=== PATIENT | female | born 1995 | race Caucasian/White ===

== ENCOUNTER 2018-06-15 02:35 | Inpatient (IN) | payer MEDICAID ==
--- NOTE | 2018-06-15 03:53 | Ultrasound Report ---
FINAL REPORT PROCEDURE: US OB LIMITED TECHNIQUE: Real-time limited sonographic examination was performed for evaluation of well-bein g for each fetus with image documentation (1 or more fetuses). CPT 84639 HISTORY: presentation-leaking fluid COMPARISON: No prior studies are available for comparison. FINDINGS: There is a single fetus in a transverse position. heart rate 146 beats per minute. The placenta is along the fundus of the uterus. No other measurements are obtained IMPRESSION: Single fetus in a transverse position. heart rate 146 beats per minute.
[2018-06-15] MEDS ORDERED: BICITRA PO ONE (03:54)
[2018-06-15] MEDS ORDERED: PEPCID IV ONE ×2 (03:54→07:35)
[2018-06-15] MEDS ORDERED: REGLAN IV ONE (03:54)
[2018-06-15] MEDS ORDERED: PITOCin/NS 20 UNIT/1000ML DRIP 20 UNITS/1,000 ML BAG IV SCH ×2 (04:00→11:00)
[2018-06-15] MEDS ORDERED: ANCEF/STERILE WATER 2 GM/20 ML 2 GM/20 ML SYRINGE IV NR (04:00)
[2018-06-15] MEDS: LACTATED RINGERS 1,000 ML IV SCH ×2 (04:43→06:04)
[2018-06-15 05:18] LABS: Basophils # (Auto) 0.1 K/mm3 (0.0-0.1); Basophils % (Auto) 0.8 % (0.0-1.8); Eosinophils # (Auto) 0.1 K/mm3 (0.0-0.4); Eosinophils % (Auto) 0.6 % (0.0-4.3); Hematocrit 36.7 % (30.3-42.9); Hemoglobin 12.3 gm/dl (10.1-14.3); Lymphocytes # (Auto) 2.8 K/mm3 (1.2-5.4); Lymphocytes % (Auto) 22.3 % (13.4-35.0); Mean Corpuscular HGB Conc 34 % (30-34); Mean Corpuscular Volume 87 fl (79-97); Monocytes # (Auto) 0.7 K/mm3 (0.0-0.8); Monocytes % (Auto) 5.8 % (0.0-7.3); Platelet Count 209 K/mm3 (140-440); Red Blood Count 4.23 M/mm3 (3.65-5.03)
[2018-06-15] MEDS ORDERED: BICITRA ONE (07:35)
[2018-06-15] MEDS ORDERED: REGLAN ONE (07:35)
[2018-06-15] MEDS ORDERED: ZOFRAN ONE (09:13)
[2018-06-15] MEDS ORDERED: NEO SYNEPHRINE/NS Syringe(OR USE) IV ONE (09:13)
[2018-06-15] MEDS ORDERED: ASTRAMORPH PF 10MG/10ML ONE (09:14)
[2018-06-15] MEDS ORDERED: LACTATED RINGERS 1,000 ML ONE (09:46)
--- NOTE | 2018-06-15 10:14 | History and Physical Report ---
History of Present Illness Date of examination: 06/15/18 Date of admission: 06/15/18 04:00 Chief complaint: SROM clear fluid @ 0125 History of present illness: Pt is a 23yo HF EDC 07/05/18; EGA 37 1/7 weeks presents to L&D complaining of SROM clear fluid @ 0125 followed by irregular contractions. She received care at [facility] since 14 weeks and co-managed by [facility] for GDM on Glyburide. records are available and GBS is Negative. Past History Past Medical History: diabetes (GDM) Past Surgical History: no surgical history Family/Genetic History: none Social history: no significant social history, single - Obstetrical History Expected Date of Delivery: 07/05/18 Actual Gestation: 37 Week(s) 1 Day(s) : 1 Medications and Allergies Allergies Allergy/AdvReac Type Severity Reaction Status Date / Time prednisolone [From Prelone] Allergy Rash Verified 06/15/18 03:13 Home Medications Medication Instructions Recorded Confirmed Last Taken Type Vit,Calc76/Iron/Folic 1 tab PO DAILY 06/15/18 06/15/18 06/14/18 History [Pnv 29-1 Tablet] glyBURIDE [Glyburide] 5 mg PO BID 06/15/18 06/15/18 06/14/18 History Active Meds: Active Medications Cefazolin Sodium (Ancef/Sterile Water 2 Gm/20 Ml) 2 gm in 20 mls @ 80 mls/hr IV PREOP NR; Protocol Stop: 06/15/18 23:59 Lactated Ringer's (Lactated Ringers) 1,000 mls @ 2,250 mls/hr IV PREOP JORDANA Stop: 06/16/18 04:27 Last Admin: 06/15/18 06:04 Dose: 2,250 mls/hr Documented by: Oxytocin/Sodium Chloride (Pitocin/Ns 20 Unit/1000ml Drip) 20 units in 1,000 mls @ 0 mls/hr IV TITR JORDANA Review of Systems All systems: negative - Vital Signs Vital signs: Vital Signs Pulse BP 95 H 129/84 06/15/18 02:53 06/15/18 02:53 Temp Pulse Resp BP Pulse Ox 98.5 F 96 H 18 122/73 06/15/18 07:15 06/15/18 04:36 06/15/18 07:15 06/15/18 04:36 - Physical Exam Breasts: Positive: deferred Cardiovascular: Regular rate Lungs: Positive: Clear to auscultation Abdomen: Positive: normal appearance, soft Genitourinary (Female): Positive: normal external genitalia Vagina: Positive: normal moisture Uterus: Positive: enlarged Extremities: Positive: normal - Obstetrical FHR: category 1 Uterine Contraction Monitor Mode: External Uterine Contraction Pattern: Irregular Results Result Diagrams: 06/15/18 04:43 Abnormal lab results 06/15/18 Range/Units 04:43 WBC 12.6 H (4.5-11.0) K/mm3 RDW 17.0 H (13.2-15.2) % Seg Neutrophils % 70.5 H (40.0-70.0) % Seg Neutrophils # 8.9 H (1.8-7.7) K/mm3 All other labs normal. Ultrasound: report reviewed Assessment and Plan - Patient Problems (1) 37 weeks gestation of Onset Date: 06/15/18 Current Visit: Yes Status: Acute Plan to address problem: A: IUP @ 37 1/7 weeks in labor PPROM Breech presentation GDM P: Admit to L&D for C Section delivery Accuchecks (2) Breech presentation Onset Date: 06/15/18 Current Visit: Yes Status: Acute Qualifiers: Fetus number: single or unspecified fetus Qualified Code(s): O32.1XX0 - Maternal care for breech presentation, not applicable or unspecified (3) GDM (gestational diabetes mellitus) Onset Date: 06/15/18 Current Visit: Yes Status: Acute Qualifiers: Gestational diabetes mellitus control: oral hypoglycemic-controlled Trimester: third trimester Qualified Code(s): O24.415 - Gestational diabetes mellitus in , controlled by oral hypoglycemic drugs (4) premature rupture of membranes (PPROM) with onset of labor after 24 hours of rupture in third trimester, antepartum Onset Date: 06/15/18 Current Visit: Yes Status: Acute
--- NOTE | 2018-06-15 10:21 | Operative Report ---
Operative Report Operative Report: Date of procedure: 06/15/2018 Pre-operative diagnosis: 1. Intrauterine at 37-1/7 weeks 2. Prete rm premature rupture of membranes 3. Breech presentation 4. Gestational diabetes mellitus Post-operative diagnosis: Same Procedure name(s): Primary low transverse section Surgeon: Robert Sawyer MD Relations Mgr: None Anesthesia: Spinal anesthesia by Dr. Davidson EBL: 350 mL Findings: A 2977 g male infant Apgars 9 at 1 minute and 9 at 5 minutes. Double footling breech presentation. Normal uterus. Normal tubes and ovaries bilaterally. Procedure: After the patient was prepped and draped in usual sterile fashion, and after satisfactory level of epidural anesthesia was obtained, the skin knife was used to make a transverse skin incision. The incision was excised down to layer of the fascia, which was nicked in the midline and extended laterally using the Bovie cautery. The rectus muscles were dissected off the rectus fascia both superiorly and inferiorly. The rectus bellies in the midline, and the peritoneum was entered under direct visualization. The p eritoneal incision was extended superiorly and inferiorly. A bladder flap was created and the bladder blade was then placed. The uterus was scored in a curvilinear linear fashion, entered in the midline revealing clear amniotic fluid. The 's feet were delivered onto the surgical field, and the rest of the infant's body was delivered, cord was doubly clamped and cut and the was handed to the waiting respiratory team. Cord blood was then obtained. The placenta was manually removed from the uterus, and the uterus removed from its normal anatomical position. After gentle uterine lavage, the incision was inspected and found to be without extensions. It was then closed in 2 layers using 0 Vicryl suture in a running interlocking fashion, the second layer imbricating the first. After good hemostasis was achieved, copious amounts or irrigation was performed, and the gutters were suctioned free of blood and blood clots. Tisseel sealant was sprayed across the uterine incision. The uterus was then returned to its normal anatomical position, and after excellent hemostasis assured, the peritoneum was re-approximated using 3-0 Vicryl suture in a running interlocking fashion, and then the rectus muscles were re-approximated using 3-0 Vicryl suture in a [id number] configuration. The fascia was then re-approximated using 0 Vicryl suture in running interlocking fashion. The subcutaneous layer was made hemostatic using Bovie cautery, the Tisseel sealant was sprayed across the fascial incision and the skin edges re-approximated using 4-0 Vicryl suture in a sub-cuticular fashion. Patient tolerated the procedure well was transported to recovery in stable condition.
[2018-06-15] MEDS ORDERED: SENOKOT PO PRN (10:25)
[2018-06-15] MEDS ORDERED: LANSINOH TP PRN (10:25)
[2018-06-15] MEDS ORDERED: TORADOL IV PRN (10:25)
[2018-06-15] MEDS ORDERED: NARCAN 0.4 MG/1 ML IV PRN ×2 (10:25→10:32)
[2018-06-15] MEDS ORDERED: TYLENOL PO PRN (10:25)
[2018-06-15] MEDS ORDERED: NORCO 5/325 PO PRN (10:25)
[2018-06-15] MEDS ORDERED: MILK OF MAGNESIA PO PRN (10:25)
[2018-06-15] MEDS ORDERED: TUCKS PAD TP PRN (10:25)
[2018-06-15] MEDS ORDERED: PHENERGAN PR PRN ×2 (10:25→10:32)
--- NOTE | 2018-06-15 10:29 | Anesthesia Consultation ---
Anesthesia Consult and Med Hx - Airway Anesthetic Teeth Evaluation: Good ROM Head & Neck: Adequate Mental/Hyoid Distance: Adequate Mallampati Class: Class I Intubation Access Assessment: Good - Pulmonary Exam CTA: Yes - Cardiac Exam Cardiac Exam: RRR - Pre-Operative Health Status Proposed Anesthetic Plan: Spinal - Pulmonary Hx Smoking: No Hx Asthma: No - Cardiovascular System Hx Hypertension: No - Central Nervous System Hx Seizures: No Hx Psychiatric Problems: No - Endocrine Hx Renal Disease: No Hx Hypothyroidism: No Hx Hyperthyroidism: No - Hematic Hx Anemia: No Hx Sickle Cell Disease: No - Other Systems Hx Alcohol Use: No
--- NOTE | 2018-06-15 10:30 | Post Anesthesia Evaluation ---
- Post Anesthesia Evaluation Patient Participated: Yes Airway Patent: Yes Stable Respiratory Function: Yes Nausea/Vomiting: No Temp > 96.8F: Yes Pain Manageable: Yes Adequeate Hydration: Yes Anesthesia Complications: No Block Receding Appropriately: Yes Patient on Ventilator: No
--- NOTE | 2018-06-15 10:30 | Anesthesia Day of Surgery ---
Anesthesia Day of Surgery - Day of Surgery Patient Examined: Yes Patient H&P Reviewed: Yes Patient is NPO: Yes Beta Blockers: No Cardiac Clearance: No Pulmonary Clearance: No Jaime's Test: N/A
[2018-06-15] MEDS ORDERED: PHENERGAN PO PRN (10:32)
[2018-06-15] MEDS ORDERED: DILAUDID IV PRN (10:32)
[2018-06-15] MEDS ORDERED: D50W (25GM) Syringe IV PRN (10:39)
[2018-06-15] MEDS ORDERED: SODIUM CHLORIDE FLUSH SYRINGE 10 ML IV NR ×2 (11:00)
[2018-06-15] MEDS ORDERED: ZOFRAN IV PRN ×2 (11:00)
[2018-06-15] MEDS ORDERED: D5LR 1,000 ML IV SCH (11:00)
[2018-06-15] MEDS ORDERED: ANCEF/NS 1 GM/50 ML 1 GM/50 ML BAG IV SCH (11:00)
[2018-06-15] MEDS: HumuLIN R SUB-Q SCH ×2 (17:15→22:08)
[2018-06-15] MEDS ORDERED: LACTATED RINGERS 1,000 ML IV SCH (18:00)
[2018-06-15] MEDS: ANCEF/NS 1 GM/50 ML 1 GM/50 ML BAG IV SCH (18:36)
[2018-06-15 23:38] LABS: Hemoglobin 10.1 gm/dl (10.1-14.3)
[2018-06-16] MEDS: ANCEF/NS 1 GM/50 ML 1 GM/50 ML BAG IV SCH (02:01)
--- NOTE | 2018-06-16 09:18 | Progress Note ---
Assessment and Plan - Patient Problems (1) 37 weeks gestation of Onset Date: 06/15/18 Current Visit: Yes Status: Resolved (2) Breech presentation Onset Date: 06/15/18 Current Visit: Yes Status: Resolved Qualifiers: Fetus number: single or unspecified fetus Qualified Code(s): O32.1XX0 - Ma ternal care for breech presentation, not applicable or unspecified (3) GDM (gestational diabetes mellitus) Onset Date: 06/15/18 Current Visit: Yes Status: Resolved Qualifiers: Gestational diabetes mellitus control: oral hypoglycemic-controlled Trimester: third trimester Qualified Code(s): O24.415 - Gestational diabetes mellitus in , controlled by oral hypoglycemic drugs (4) premature rupture of membranes (PPROM) with onset of labor after 24 hours of rupture in third trimester, antepartum Onset Date: 06/15/18 Current Visit: Yes Status: Resolved (5) Status post Onset Date: 06/16/18 Current Visit: Yes Status: Resolved Plan to address problem: A: S/P C Section - POD #1 Doing well Asymptomatic anemia - stable P: Continue RPOC Anticipate discharge in 24-48hrs Subjective - Subjective Date of service: 06/16/18 Principal diagnosis: s/p C Section - POD #1 Interval history: Pt is feeling well without complaints. Bleeding improved. Patient reports: appetite normal, voiding normally, pain well controlled, a mbulating normally, no dizzy ambulation, no flatus, no bowel movement, no nauseated [place]: doing well, nursing well, bottle feeding Objective - Vital Signs Latest vital signs: Vital Signs Temp Pulse Resp BP BP Pulse Ox 06/16/18 07:56 98.4 F 83 18 113/58 99 06/16/18 00:00 98.7 F 82 18 108/69 06/15/18 20:00 98.6 F 88 16 117/75 06/15/18 16:07 98.5 F 94 H 20 125/74 06/15/18 11:30 98.6 F 70 13 117/68 97 06/15/18 11:00 79 14 118/69 96 06/15/18 10:45 72 17 115/65 98 06/15/18 10:40 77 15 119/75 97 06/15/18 10:35 84 14 119/69 97 06/15/18 10:30 80 14 118/62 98 06/15/18 10:27 97.8 F 116/66 Intake and Output 06/15/18 06/16/18 06/16/18 22:59 06:59 14:59 Intake Total 350 600 Output Total 800 3400 Balance -450 -2800 Intake: IV 50 ANCEF/NS 1 GM/50 ML 1 gm 50 In 50 ml @ 100 mls/hr IV Q8H PENDING SALE TO [facility] Rx#:[id number] Oral 300 Intake, Free Water 600 Output: Urine 800 3400 Indwelling Catheter 800 1200 Void 2200 Other: Total, Intake Amount 300 Total, Output Amount 800 800 # Voids Void 1 - Exam Abdomen: Present: normal appearance, soft Uterus: Present: normal, firm, fundal height below umbilicus Extremities: Present: normal Incision: Present: normal, dry, intact, dressed - Labs Labs: Abnormal lab results 06/15/18 Range/Units 23:00 Hct 30.0 L D (30.3-42.9) % Laboratory Tests 06/15/18 06/15/18 06/15/18 03:42 04:43 04:43 WBC 12.6 H RBC 4.23 Hgb 12.3 Hct 36.7 MCV 87 MCH 29 MCHC 34 RDW 17.0 H Plt Count 209 Lymph % (Auto) 22.3 [place] % (Auto) 5.8 Eos % (Auto) 0.6 Baso % (Auto) 0.8 Lymph # 2.8 [place] # 0.7 Eos # 0.1 Baso # 0.1 Seg Neutrophils % 70.5 H Seg Neutrophils # 8.9 H POC Glucose 89 Blood Type O POSITIVE Antibody Screen Negative 06/15/18 06/15/18 06/15/18 14:21 17:51 22:05 WBC RBC Hgb Hct MCV MCH MCHC RDW Plt Count Lymph % (Auto) [place] % (Auto) Eos % (Auto) Baso % (Auto) Lymph # [place] # Eos # Baso # Seg Neutrophils % Seg Neutrophils # POC Glucose 87 79 77 Blood Type Antibody Screen 06/15/18 06/16/18 23:00 08:21 WBC RBC Hgb 10.1 Hct 30.0 L D MCV MCH MCHC RDW Plt Count Lymph % (Auto) [place] % (Auto) Eos % (Auto) Baso % (Auto) Lymph # [place] # Eos # Baso # Seg Neutrophils % Seg Neutrophils # POC Glucose 90 Blood Type Antibody Screen
[2018-06-16] MEDS: FEOSOL PO SCH (10:15)
[2018-06-16] MEDS: PRENATAL VITAMIN PO SCH (10:15)
[2018-06-16] MEDS ORDERED: M-M-R II VACCINE SUB-Q ONE (10:27)
[2018-06-16] MEDS ORDERED: BOOSTRIX IM ONE (10:27)
[2018-06-16] MEDS: PERCOCET 5/325 PO PRN ×2 (11:57→22:32)
[2018-06-16] MEDS: HumuLIN R SUB-Q SCH (22:43)
[2018-06-17] MEDS: IBUPROFEN PO PRN ×2 (06:52→15:40)
[2018-06-17 08:28] VITALS: BP 128/76
--- NOTE | 2018-06-17 09:54 | Progress Note ---
Assessment and Plan - Patient Problems (1) 37 weeks gestation of Onset Date: 06/15/18 Current Visit: Yes Status: Resolved (2) Breech presentation Onset Date: 06/15/18 Current Visit: Yes Status: Resolved Qualifiers: Fetus number: single or unspecified fetus Qualified Code(s): O32.1XX0 - Ma ternal care for breech presentation, not applicable or unspecified (3) GDM (gestational diabetes mellitus) Onset Date: 06/15/18 Current Visit: Yes Status: Resolved Qualifiers: Gestational diabetes mellitus control: oral hypoglycemic-controlled Trimester: third trimester Qualified Code(s): O24.415 - Gestational diabetes mellitus in , controlled by oral hypoglycemic drugs (4) premature rupture of membranes (PPROM) with onset of labor after 24 hours of rupture in third trimester, antepartum Onset Date: 06/15/18 Current Visit: Yes Status: Resolved (5) Status post Onset Date: 06/16/18 Current Visit: Yes Status: Resolved Plan to address problem: A: S/P C Section - POD #2 Doing well Asymptomatic anemia - stable P: May go home today. Subjective - Subjective Date of service: 06/17/18 Principal diagnosis: s/p C Section - POD #2 Interval history: Pt is feeling well without complaints. She is tolerating a reg diet without nausea or vomiting, ambulating and voiding without difficulty. Patient reports: appetite normal, voiding normally, pain well controlled, flatus, ambulating normally, no dizzy ambulation, no nauseated [place]: doing well, nursing well, bottle feeding Objective - Vital Signs Latest vital signs: Vital Signs Temp Pulse Resp BP 06/17/18 07:18 98.9 F 77 18 128/76 06/17/18 01:24 98.0 F 18 06/16/18 15:28 98.2 F 87 17 122/70 Intake and Output 06/16/18 06/17/18 06/17/18 22:59 06:59 14:59 Intake Total 120 360 240 Balance 120 360 240 Intake: Oral 120 240 Intake, Free Water 360 Other: Total, Intake Amount 120 240 # Voids Indwelling Catheter 1 Void 2 - Exam Breasts: Present: deferred Abdomen: Present: normal appearance, soft Uterus: Present: normal, firm, fundal height below umbilicus Extremities: Present: normal Incision: Present: normal, dry, intact, dressed - Labs Labs: Abnormal lab results 06/16/18 Range/Units 11:53 POC Glucose 111 H (70-105)
--- NOTE | 2018-06-17 09:55 | Discharge Summary ---
Providers - Providers Date of Admission: 06/15/18 04:00 Date of discharge: 06/17/18 Attending physician: STAN RODRIGUEZ Primary care physician: STAN RODRIGUEZ Hospitalization Reason for admission: rupture of membranes, IUP at term, other (Malpresentation) Delivery: Procedure: section, primary low transverse Episiotomy: none Laceration: none Incision: normal, dry Other procedures: none complications: none Discharge diagnosis: IUP at term delivered baby: male Hospital course: Pt is a 23yo HF EDC 07/05/18; EGA 37 06/03 weeks who presented to L&D complaining of SROM clear fluid @ 0125 followed by irregular contractions. She received care at [facility] since 14 weeks and co-managed by [facility] for GDM on Glyburide. Pelvic u/s showed transverse presentatio, so she was delivered by an uncomplicated C Section. By POD #2 she was tolerating a reg diet without nausea or vomiting, ambulating and voiding without difficulty, and therefore discharged to home on POD #2 in stable condition. Condition at discharge: Good Disposition: DC-01 TO HOME OR SELFCARE - Discharge Diagnoses (1) 37 weeks gestation of Status: Resolved (2) Breech presentation Status: Resolved Qualifiers: Fetus number: single or unspecified fetus Qualified Code(s): O32.1XX0 - Maternal care for breech presentation, not applicable or unspecified (3) GDM (gestational diabetes mellitus) Status: Resolved Qualifiers: Gestational diabetes mellitus control: oral hypoglycemic-controlled Trimester: third trimester Qualified Code(s): O24.415 - Gestational diabetes mellitus in , controlled by oral hypoglycemic drugs (4) premature rupture of membranes (PPROM) with onset of labor after 24 hours of rupture in third trimester, antepartum Status: Resolved (5) Status post Status: Resolved Plan - Discharge Medications Prescriptions: Ferrous Sulfate [Feosol 325 MG tab] 325 mg PO BID #30 tablet HYDROcodone/APAP 5-325 [[place] 5-325 mg TAB] 1 each PO Q6HR PRN #30 tablet PRN Reason: Pain, Moderate (4-6) Ibuprofen [Motrin 800 MG tab] 800 mg PO Q6H PRN #30 tablet PRN Reason: Pain, Mild (1-3) Vit-Fe Fumar-FA [ Vitamin] 1 each PO QDAY #30 tablet - Provider Discharge Summary Activity: routine, no sex for 6 weeks, no heavy lifting 4 weeks, no strenuous exercise Diet: routine Instructions: routine Additional instructions: [] Smoking cessation referral if applicable(refer to patient education folder for contact #) [] Refer to [facility]'s [facility] Booklet Call your doctor immediately for: * Fever > 100.5 * Heavy vaginal bleeding ( >1 pad per hour) * Severe persistent headache * Shortness of breath * Reddened, hot, painful area to leg or breast * Drainage or odor from incision. * Keep incision clean and dry at all times and follow doctor's instructions regarding bathing/showering - Follow up plan Follow up: STAN RODRIGUEZ MD [Primary Care Provider] - 14 Days BRANDI DYER CNM [Advanced Practice Nurse] - 14 Days
[2018-06-17] MEDS: PERCOCET 5/325 PO PRN (15:40)
[2018-06-17] MEDS: PRENATAL VITAMIN PO SCH (15:40)
[2018-06-17] MEDS: FEOSOL PO SCH (15:40)
== END 2018-06-17 16:33 | disposition home or self-care (01) | DRG 766 ==
LOC: TRG 02:35 → APU 04:00 → OB 16:12
PROVIDERS: ADMIT Obstetrics & Gynecology; ATTEND Obstetrics & Gynecology
PROC: 10D00Z1 Extraction of Products of Conception, Low, Open Approach (ICD-10-PCS; principal; 2018-06-15)
PROC: 3E0234Z Introduction of Serum, Toxoid and Vaccine into Muscle, Percutaneous Approach (ICD-10-PCS; 2018-06-16)
DX: O32.1XX0 Maternal care for breech presentation, not applicable or unspecified (principal); Z37.0 Single live birth; Z3A.37 37 weeks gestation of pregnancy; O24.425 Gestational diabetes mellitus in childbirth, controlled by oral hypoglycemic drugs; Z88.8 Allergy status to other drugs, medicaments and biological substances; O42.90 Premature rupture of membranes, unspecified as to length of time between rupture and onset of labor, unspecified weeks of gestation; Z79.84 Long term (current) use of oral hypoglycemic drugs; Z23 Encounter for immunization; O90.81 Anemia of the puerperium; D64.9 Anemia, unspecified
CPT/HCPCS: 36415; 76815; 82962; 85014; 85018; 85025; 86850; 86900; 86901; G0378; J0690; J1885; J2274; J2370; J2405; J2590; J2765; J7120